=== PATIENT | male | born 1950 | race Caucasian/White ===

== ENCOUNTER 2017-02-07 08:43 | Emergency (ER) | payer BC ==
--- NOTE | 2017-02-07 09:23 | UC ---
Throat Pain/Nasal Lorenzo HPI - HPI Summary HPI Summary: patient has a sore throat, nsal congestion and right side sinus pressure. - History of Current Complaint Stated Complaint: RESPIRATORY Time Seen by Provider: 02/07/17 09:12 Hx Obtained From: Patient Onset/Duration: Sudden Onset, Lasting Days Severity: Moderate Cough: Nonproductive Associated Signs & Symptoms: Positive: Wheezing - Epiglottits Risk Factors Epiglottis Risk Factors: Negative PMH/Surg Hx/FS Hx/Imm Hx - Family History Known Family History: Negative: Cardiac Disease, Hypertension Review of Systems Constitutional: Fatigue Skin: Negative Eyes: Negative ENT: Sore Throat, Ear Ache, Nasal Discharge Respiratory: Cough Cardiovascular: Negative Gastrointestinal: Negative Genitourinary: Negative Motor: Negative Neurovascular: Negative Musculoskeletal: Negative Neurological: Headache Psychological: Negative All Other Systems Reviewed And Are Negative: Yes Physical Exam Triage Information Reviewed: Yes Appearance: Well-Nourished, Ill-Appearing, Pain Distress Vital Signs Reviewed: Yes Eye Exam: Normal Eyes: Positive: Conjunctiva Clear ENT: Positive: Pharyngeal erythema, Nasal congestion, TM bulging Dental Exam: Normal Neck exam: Normal Neck: Positive: Supple, Nontender, No Lymphadenopathy Respiratory: Positive: Chest non-tender, No respiratory distress, No accessory muscle use, Wheezing, Inspiration Cardiovascular Exam: Normal Cardiovascular: Positive: RRR, No Murmur, Pulses Normal Abdominal Exam: Normal Abdomen Description: Positive: Nontender, No Organomegaly, Soft Bowel Sounds: Positive: Present Musculoskeletal Exam: Normal Musculoskeletal: Positive: Strength Intact, ROM Intact Neurological Exam: Normal Neurological: Positive: Alert, Muscle Tone Normal Psychological Exam: Normal Skin Exam: Normal Throat Pain/Nasal Course/Dx - Course Course Of Treatment: hx obtained, exam performed, meds reviewed, treated for sinusitis - Differential Dx/Diagnosis Differential Diagnosis/HQI/PQRI: Influenza, Laryngitis, Otitis Media, Pharyngitis, Sinusitis, URI Provider Diagnoses: sinusitis. wheezing Discharge - Discharge Plan Condition: Stable Disposition: HOME Prescriptions: Amoxicillin/Clavulanate TAB* [Augmentin TAB 875*] 875 mg PO BID #20 tab predniSONE TAB* [Deltasone TAB*] 40 mg PO DAILY #10 tab Patient Education Materials: Sinusitis (ED)
== END 2017-02-07 09:45 | disposition home or self-care (01) ==
LOC: UCCORT 08:43
DX: J32.9 Chronic sinusitis, unspecified (principal); R06.2 Wheezing
CPT/HCPCS: 99202; G0463

== ENCOUNTER 2017-03-29 17:39 | Emergency (ER) | payer MEDICARE, BC ==
[2017-03-29 18:51] VITALS: BP 159/76
--- NOTE | 2017-03-29 22:17 | UC ---
Amparo Rodriguez Rebecca, scribed for Nicola Yin MD on 03/29/17 at 1917 . Back Pain HPI - HPI Summary HPI Summary: Pt is a 66 y/o M who presents to [facility] c/o back pain s/p fall. 2 days ago he was standing in the bath tub and fell out, falling backwards and sideways. Back pain began immediately after fall and has been constant since onset. Pain is in the L lumbar back and is currently severe, ranked 10/10 characterized as burning and stabbing. Sx aggravated by sudden movement and movement of the LLE, alleviated slightly by Ibuprofen. Additionally notes mild R shoulder pain which he describes as intermittent "discomfort" which he is not concerned about at this moment. Denies bruising, epistaxis or spine, hip, LLE, groin and abdominal pain. Denies LOC. Is not on a blood thinner. - History of Current Complaint Chief Complaint: UCBackPain Stated Complaint: BACK PAIN Time Seen by Provider: 03/29/17 19:01 Hx Obtained From: Patient Onset/Duration: Lasting Days - 2 days, Still Present Timing: Constant Severity Currently: Severe Pain Intensity: 10 Pain Scale Used: 0-10 Numeric Back Pain: Is Discrete @ - L lumbar back Character: Sharp, Burning Aggravating: Movement - Sudden movement and movement of the LLE Alleviating: OTC Meds - Ibuprofen Associated Signs And Symptoms: Positive: Other - Slight R shoulder discomfort - Allergies/Home Medications Allergies/Adverse Reactions: Allergies Allergy/AdvReac Type Severity Reaction Status Date / Time No Known Allergies Allergy Verified 03/29/17 18:49 PMH/Surg Hx/FS Hx/Imm Hx Previously Healthy: Yes Cardiovascular History: Other Other Cardiovascular History: Negative CAD - Surgical History Surgical History: Yes Surgery Procedure, Year, and Place: 2009- bilat repair of tendon in knee. 2009 - 2nd repair of right knee tendon - Family History Known Family History: Negative: Cardiac Disease, Hypertension - Social History Alcohol Use: Daily Alcohol Amount: every other day and the weekends Substance Use Type: None Smoking Status (MU): Former Smoker When Did the Patient Quit Smoking/Using Tobacco: 2009 Review of Systems Constitutional: Negative Skin: Negative Eyes: Negative ENT: Negative Respiratory: Negative Cardiovascular: Negative Gastrointestinal: Negative Genitourinary: Negative Motor: Negative Neurovascular: Negative Musculoskeletal: Myalgia - See comments Neurological: Negative Psychological: Negative All Other Systems Reviewed And Are Negative: Yes - Comments Additional Review of Systems Comments: POSITIVE: L lumbar back pain, mild R shoulder pain NEGATIVE: Bruising, epistaxis or spine, hip, LLE, groin and abdominal pain. LOC. Physical Exam Triage Information Reviewed: Yes Vital Signs: Initial Vital Signs Temp 98.0 F 03/29/17 18:43 Pulse 66 03/29/17 18:43 Resp 14 03/29/17 18:43 BP 159/76 03/29/17 18:43 Pulse Ox 96 03/29/17 18:43 Vital Signs Reviewed: Yes - Additional Comments The patient is well-nourished in no acute distress and in no acute pain. The skin is warm and dry and skin color reflects adequate perfusion. HEENT: There is an abrasion on the occiput on the right side. Otherwise, no fraser sign, raccoon sign or hemotympanum. The pupils are equal and reactive. The conjunctivae are clear and without drainage. Nares are patent and without drainage. Mouth reveals moist mucous membranes and the throat is without erythema and exudate. The external ears are intact. The ear canals are patent and without drainage. The tympanic membranes are intact. Neck is supple with full range of motion and non-tender. There is no reproducible pain. Respiratory: Chest is non-tender. Lungs are clear to auscultation and breath sounds are symmetrical and equal. Cardiovascular: Hear is regular rate and rhythm. There is no murmur or rub auscultated. There is no peripheral edema and pulses are symmetrical and equal. Musculoskeletal: Extremities are non-tender with full range of motion. There is good capillary refill. There is no peripheral edema or calf tenderness elicited. NO osseous tenderness. No pain over the the left spine, in the hip or spinous process tenderness. Tenderness over the L psoas muscle. Pain in the perivertebral musculature of the Psoas muscle with some muscle spasms appreciable. Able to walk without difficulty. No swelling in the R shoulder. FROM. No step off. No evidence of rotator cuff tear. Distal neurovascular intact. Neurological: Patient is alert and oriented to person, place and time. The patient has symmetrical motor strength in all four extremities. Cranial nerves are grossly intact. Deep tendon reflexes are symmetrical and equal in all four extremities. Psychiatric: The patient has an appropriate affect and does not exhibit any anxiety or depression. Back Pain Course/Dx - Course Course Of Treatment: Pt is a 66 y/o M who presents to [facility] c/o back pain s/p fall out of a bath tub 2 days ago. Pain is in the L lumbar back and is currently severe, ranked 10/10, characterized as burning and stabbing. Sx aggravated by sudden movement and movement of the LLE, alleviated slightly by Ibuprofen. Additionally notes mild R shoulder pain which he describes as intermittent "discomfort" which he is not concerned about at this moment. Denies bruising, epistaxis or spine, hip, LLE, groin and abdominal pain. Denies LOC. Is not on a blood thinner. Will be D/C to home with Dx of contusion,. strain of the lumbar spine, sprain of the lumbar spine an Rx for Valium and [place] 5-325. - Differential Dx/Diagnosis Differential Diagnosis/HQI/PQRI: Strain, Sprain Provider Diagnoses: Contusion. Strain of the lumbar spine. Sprain of the lumbar spine Discharge - Discharge Plan Condition: Stable Disposition: HOME Prescriptions: Diazepam TAB(*) [Valium TAB(*)] 5 mg PO Q6H PRN #20 tab MDD 4 PRN Reason: pain HYDROcodone/ACETAMIN 5-325 MG* [[place] 5-325 TAB*] 1 tab PO Q8H PRN #15 tab MDD 3 PRN Reason: pain Patient Education Materials: Contusion in Adults (ED), Low Back Strain (ED) Referrals: Jose Alfredo Ambrocio MD [Primary Care Provider] - 3 Days The documentation as recorded by the Amparo alcala Rebecca accurately reflects the service I personally performed and the decisions made by , Nicola Yin MD.
== END 2017-03-29 19:24 | disposition home or self-care (01) ==
LOC: UCCORT 17:39
DX: S39.012A Strain of muscle, fascia and tendon of lower back, initial encounter (principal); S33.5XXA Sprain of ligaments of lumbar spine, initial encounter; T14.8 Other injury of unspecified body region; W18.2XXA Fall in (into) shower or empty bathtub, initial encounter; Z87.891 Personal history of nicotine dependence
CPT/HCPCS: 99212; G0463

== ENCOUNTER 2018-10-21 07:04 | Emergency (ER) | payer MEDICARE, BC ==
[2018-10-21 07:32] VITALS: BP 120/72
--- NOTE | 2018-10-21 07:41 | UC ---
Respiratory Complaint HPI - HPI Summary HPI Summary: cough x 1 week cough is productive , yellow sputum nasal congestion , pnd , lightheaded no fever, no chills, no sob - History of Current Complaint Chief Complaint: UCRespiratory Stated Complaint: CONGESTION COUGH Time Seen by Provider: 10/21/18 07:32 Hx Obtained From: Patient Onset/Duration: Gradual Onset, Lasting Days - 7, Still Present Timing: Constant Severity Initially: Moderate Severity Currently: Moderate Pain Intensity: 0 Character: Cough: Productive Aggravating Factors: Exertion, Deep Breaths Alleviating Factors: Nothing Associated Signs And Symptoms: Positive: URI, Nasal Congestion. Negative: Dyspnea, Fever, Chills, Dizziness, Calf Swelling - Allergies/Home Medications Allergies/Adverse Reactions: Allergies Allergy/AdvReac Type Severity Reaction Status Date / Time No Known Allergies Allergy Verified 10/21/18 07:26 Home Medications: Home Medications Eucalyptus Oil/Menthol/Camphor [Vicks Vaporub] 1 applic TOPICAL SEE INSTRUCTIONS PRN 10/21/18 [History Confirmed 10/21/18] Ibuprofen TAB* [Advil TAB*] 200 mg PO Q4H PRN 10/21/18 [History Confirmed ] PMH/Surg Hx/FS Hx/Imm Hx Respiratory History: Pneumonia - Surgical History Surgical History: Yes Surgery Procedure, Year, and Place: 2009- bilat repair of tendon in knee. 2009 - 2nd repair of right knee tendon - Family History Known Family History: Negative: Cardiac Disease, Hypertension - Social History Alcohol Use: Weekly Alcohol Amount: every other day and the weekends Substance Use Type: None Smoking Status (MU): Former Smoker Length of Time of Smoking/Using Tobacco: 1 PPD x 40 Years When Did the Patient Quit Smoking/Using Tobacco: 2009 Review of Systems All Other Systems Reviewed And Are Negative: Yes Constitutional: Positive: Negative Skin: Positive: Negative Eyes: Positive: Negative ENT: Positive: Nasal Discharge Respiratory: Positive: Cough Cardiovascular: Positive: Negative Is Patient Immunocompromised?: No Physical Exam Triage Information Reviewed: Yes Appearance: Well-Appearing, No Pain Distress, Obese Vital Signs: Initial Vital Signs Temp 98.4 F 10/21/18 07:25 Pulse 94 10/21/18 07:25 Resp 20 10/21/18 07:25 BP 120/72 10/21/18 07:25 Pulse Ox 97 02/15/19 07:25 Vital Signs Reviewed: Yes Eyes: Positive: Conjunctiva Clear ENT: Positive: Normal ENT inspection, Hearing grossly normal, Pharynx normal, Nasal congestion Neck exam: Normal Neck: Positive: Supple, Nontender, No Lymphadenopathy Respiratory: Positive: Chest non-tender, Lungs clear, Normal breath sounds Cardiovascular: Positive: RRR, No Murmur, Pulses Normal Skin Exam: Normal UC Diagnostic Evaluation - Laboratory O2 Sat by Pulse Oximetry: 97 Respiratory Course/Dx - Differential Dx/Diagnosis Provider Diagnosis: URI (upper respiratory infection) Discharge - Sign-Out/Discharge Documenting (check all that apply): Patient Departure All imaging exams completed and their final reports reviewed: No Studies - Discharge Plan Condition: Stable Disposition: HOME Prescriptions: Benzonatate CAP* [Tessalon 100 MG CAP*] 100 mg PO TID PRN #21 cap PRN Reason: Cough Patient Education Materials: Upper Respiratory Infection (DC) Referrals: Jose Alfredo Ambrocio MD [Primary Care Provider] - 7 Days - Billing Disposition and Condition Condition: STABLE Disposition: Home
== END 2018-10-21 07:43 | disposition home or self-care (01) ==
LOC: UCCORT 07:04
DX: J06.9 Acute upper respiratory infection, unspecified (principal); Z87.891 Personal history of nicotine dependence
CPT/HCPCS: 99212; G0463